=== PATIENT | female | born 1965 | race Caucasian/White ===

== ENCOUNTER 2021-05-17 11:54 | Emergency (ER) | payer OTHER ==
[~2021-05-17] VITALS: Ht 144.8 cm; Wt 76.2 kg
[2021-05-17 12:04] VITALS: BP 131/81
--- NOTE | 2021-05-17 12:13 | NUR ---
35/F BIB SELF WITH C/O BACK PAIN, RIGHT LOWER SIDE PAIN AND DYSURIA X1 MONTH. STATES SHE HAS SEEN A DOCTOR AND GIVEN RX OF ANTIBIOTICS WITH NO RELIEF. REPORTS FEVERS AND CHILLS TODAY, DENIES N/V/D.
[2021-05-17] MEDS ORDERED: KETOROLAC 30 MG/ML VIAL IM ONE (12:25)
--- NOTE | 2021-05-17 12:44 | NUR ---
URINE COLLECTED AND WALKED TO LAB AT THIS TIME, HANDED TO MARIE
[2021-05-17 12:48] LABS: APPEARANCE,URINE SL CLOUDY (CLEAR); BILIRUBIN,URINE NEGATIVE (NEGATIVE); BLOOD, URINE 2+ (NEGATIVE); COLOR,URINE YELLOW (YELLOW); LEUKOCYTE ESTERASE ,URINE 3+ (NEGATIVE); NITRITE, URINE NEGATIVE (NEGATIVE); UGLUCOSE NEGATIVE (NEGATIVE)
[2021-05-17] MEDS ORDERED: IBUP-2213 PO (14:11)
[2021-05-17] MEDS ORDERED: CEPH-588 PO (14:11)
[2021-05-17] MEDS ORDERED: PHEN-1877 PO (14:11)
[2021-05-17 14:25] LABS: RBC,URINE 50-80 /HPF (0-5); WBC,URINE 60-80 /HPF (0-5)
[2021-05-17 14:30] VITALS: BP 128/81
--- NOTE | 2021-05-17 14:30 | NUR ---
The patient's care was reviewed and supervised by Chitra Woodward RN.
--- NOTE | 2021-05-17 14:30 | NUR ---
Patient discharged with v/s stable. Written and verbal after care instructions ABOUT URINARY TRACT INFECTION given and explained. Patient alert, oriented and verbalized understanding of instructions. Ambulatory with steady gait. All questions addressed prior to discharge. ID band removed. Patient advised to follow up with PMD. Rx of KEFLEX, IBUPROFEN ADN PYRIDIUM given.
== END 2021-05-17 14:30 | disposition home or self-care (01) ==
LOC: MED 11:54
DX: N39.0 Urinary tract infection, site not specified (principal); M54.50 Low back pain, unspecified; R30.0 Dysuria; Z79.899 Other long term (current) drug therapy
CPT/HCPCS: 81001; 96372; 99283; J1885; 87086